=== PATIENT | male | born 1965 | race Caucasian/White ===

== ENCOUNTER 2023-07-06 12:38 | Outpatient (CLI) | payer BC, SELFPAY ==
--- NOTE | 2023-07-06 12:49 | CT_ITS ---
WS: [id number] CT NECK TECHNIQUE: Contrast-enhanced CT of the neck with coronal and sagittal reformatted images. CLINICAL INFORMATION: FEELING OF LUMP IN THROAT COMPARISON: None. DLP: 316.[address] scans at [facility] use at least one of these dose optimization techniques: automated e xposure control; mA and/or kV adjustment per patient size (includes targeted exams where dose is matc hed to clinical indication); or iterative reconstruction. FINDINGS: Paranasal sinuses and mastoid air cells well aerated. Normal posterior nasopharynx. Normal parapharyn geal fat. Tonsillar calcifications. Dental artifact degrades some images. Submandibular glands are no rmal. Normal parotid glands. Normal posterior nasopharynx. Normal parapharyngeal fat. No evidence of supraglottic or glottic mass. Normal subglottic airway. Thyroid gland normal. Lung apices are well aerated. Mild spondylitic changes cervical spine. Mild disc space narrowing in t he mid cervical spine C4-C5 and C5-C6. Mild central canal stenosis C4-C5 and C5-C6. CT/CT neck w con* [id number] IMPRESSION: 1. Salivary glands are normal. 2. No evidence of supraglottic or glottic mass. Normal subglottic airway. 3. No cervical lymphadenopathy. 4. Mild central canal stenosis C4-C5 and C5-C6.
[2023-07-06] MEDS: iohexol 350 mg/mL 500 mL Btl (per mL) IV (13:10)
== END 2023-07-06 12:39 | disposition home or self-care (01) ==
LOC: RAD 12:39
PROVIDERS: Visit Provider Nurse Practitioner Family
DX: R09.89 Other specified symptoms and signs involving the circulatory and respiratory systems (principal); M48.02 Spinal stenosis, cervical region
CPT/HCPCS: 70491; Q9967